=== PATIENT | female | born 1975 | race Two or more races ===

== ENCOUNTER 2022-02-11 00:39 | Emergency (ER) | payer BC, OTHER ==
[~2022-02-11] VITALS: Ht 162.6 cm; Wt 74.8 kg
[2022-02-11 03:18] VITALS: BP 140/88
== END 2022-02-11 04:38 | disposition home or self-care (01) ==
LOC: EDBD 00:39 → ER 00:46
DX: S01.511A Laceration without foreign body of lip, initial encounter (principal); Y04.8XXA Assault by other bodily force, initial encounter; Y93.89 Activity, other specified; Y92.9 Unspecified place or not applicable; Y99.9 Unspecified external cause status
CPT/HCPCS: 12013; 70486